=== PATIENT | male | born 1955 | race Caucasian/White ===

== ENCOUNTER 2017-04-01 01:55 | Inpatient (IN) | payer OTHER, MEDICAID ==
--- NOTE | 2017-04-01 02:18 | EDPHY ---
H & P Stated Complaint: M1 delusional and paranoid - Personal History Current Tetanus/Diphtheria Vaccine: Yes Tetanus Vaccine Date: 2008 - Medical/Surgical History Hx Asthma: No Hx Chronic Respiratory Disease: No Hx Diabetes: No Hx Cardiac Disease: No Hx Renal Disease: No Hx Cirrhosis: No Hx Alcoholism: No Hx HIV/AIDS: No Hx Splenectomy or Spleen Trauma: No Other PMH: HX: MENTAL HEALTH "ISSUES", COPD, GERD, SPINAL FUSIONS "LOWER BACK", "KNEES DONE", HYPOTHYROIDISM, PARKINSONS - Social History Smoking Status: Former smoker Time Seen by Provider: 04/01/17 02:09 HPI/ROS: Chief Complaint: Psychosis HPI: 61-year-old male who reports a history of schizoaffective disorder brought in on a mental health hold from [facility] with increasing paranoid delusions and tangential thoughts. Memory is also impaired. Patient has been calling the police multiple times and feeling that neighbors are entering his home while he is sleeping. There has been a recent change in his medications. He denies any recent illness. No fevers or chills. No nausea or vomiting. No chest pain or shortness of breath. ROS: 10 point Review of Systems is negative except as noted in the HPI. PMH: Schizoaffective disorder, neuropathy, GERD Social History: Positive smoking, no alcohol, no recreational drug use Family History: non-contributory Physical Exam: Gen: Awake, Alert, No Distress HEENT: Nose: no rhinorrhea Eyes: PERRLA, EOMI Mouth: Moist mucosa Neck: Supple, no JVD Chest: nontender, lungs clear to auscultation Heart: S1, S2 normal, no murmur Abd: Soft, non-tender, no guarding Back: no CVA tenderness, no midline tenderness Ext: no edema, non-tender Skin: no rash Neuro: CN II-XII intact, Sensation grossly intact, Strength 5/5 in bilateral upper and lower extremities (Shorty Linn) Constitutional: Initial Vital Signs Temperature (C) 36.4 C 04/01/17 02:07 Heart Rate 70 04/01/17 02:07 Respiratory Rate 18 04/01/17 02:07 Blood Pressure 160/105 H 04/01/17 02:07 O2 Sat (%) 94 04/01/17 02:07 O2 Delivery Mode Room Air Allergies/Adverse Reactions: codeine Allergy (Verified 06/19/14 21:49) Penicillins Allergy (Verified 06/19/14 21:49) Home Medications: Medication Instructions Recorded ARIPiprazole [Abilify] 15 mg PO DAILY 06/19/14 Amitriptyline HCl [Elavil 25 mg 25 mg PO HS 04/01/17 (RX)] FLUoxetine [Prozac 20 MG (*)] 40 mg PO DAILY 04/01/17 Levothyroxine [Synthroid 50 mcg 50 mcg PO DAILY06 04/01/17 (*)] OLANZapine [Zyprexa] 20 mg PO BID 04/01/17 Atorvastatin Calcium [Lipitor 10 10 mg PO DAILY 04/02/17 mg (*)] Diazepam [Valium 5 MG (*)] 5 mg PO DAILY PRN 04/02/17 Fluticasone Hfa 220 Mcg [Flovent 1 puffs IH BID 04/02/17 220 MCG Hfa MDI (*)] Furosemide [Lasix 20 MG (*)] 20 mg PO DAILY 04/02/17 Omeprazole Magnesium [Prilosec Otc] 40 mg PO DAILY 04/02/17 Potassium Cl [Klor-Con] 10 meq PO DAILY 04/02/17 Propranolol HCl [Inderal 20mg (*)] 20 mg PO BID 04/02/17 Tamsulosin HCl [Flomax 0.4 MG (*)] 0.4 mg PO HS 04/02/17 lamoTRIgine [Lamictal] 150 mg PO BID 04/02/17 levETIRAcetam [Keppra] 1,000 mg PO DAILY 04/02/17 Medical Decision Making ED Course/Re-evaluation: 61-year-old male with paranoid delusions and psychosis. He is medically cleared. [facility] is looking for placement. [address] out to [address] Nicolas pending placement. No issues during my care overnight. (Shorty Linn) 0700: I assumed care of this patient from Dr. Linn at shift change. Awaiting placement. 1449: Consulted with [facility]. He tells me the patient has been accepted at [facility] [address] Sanford. Transfer paperwork was signed by myself. Patient has been stable. (Eusebia Nicolas) - Data Points Laboratory Results: Laboratory Results 04/01/17 02:04/01/17 02:30 Departure - Departure Disposition: [facility] IP Clinical Impression: Acute psychosis Condition: Fair
[2017-04-01 02:39] LABS: % IMMATURE GRANULYOCYTES 0.5 % (0.0-1.1); ABSOLUTE IMMATURE GRANULOCYTES 0.04 10^3/uL (0.00-0.10); ADD DIFF? NO; ADD MORPH? NO; ADD SCAN? NO; ATYPICAL LYMPHOCYTE FLAG 60 (0-99); FRAGMENT RBC FLAG 0 (0-99); HEMATOCRIT 38.6 % (40.0-51.0); HEMOGLOBIN 13.1 g/dL (13.7-17.5); LEFT SHIFT FLG 0 (0-99); LIPEMIA HEMOLYSIS FLAG 90 (0-99); MEAN CELL HEMOGLOBIN 28.3 pg (27.9-34.1); MEAN CELL HEMOGLOBIN CONCENTR. 33.9 g/dL (32.4-36.7); MEAN CELL VOLUME 83.4 fL (81.5-99.8); MEAN PLATELET VOLUME 9.2 fL (8.7-11.7); PLATELET CLUMPS FLAG 20 (0-99); PLATELET COUNT 324 10^3/uL (150-400); RED BLOOD CELL COUNT 4.63 10^6/uL (4.40-6.38)
[2017-04-01 02:59] LABS: ANION GAP 8 mEq/L (8-16); CALCIUM 9.1 mg/dL (8.5-10.4); CARBON DIOXIDE 25 mEq/l (22-31); CHLORIDE 105 mEq/L (97-110); CREATININE 0.7 mg/dL (0.7-1.3); ETHANOL SERUM < 10 mg/dL (0-10); GLOMERULAR FILTRATION RATE > 60; GLUCOSE 96 mg/dL (70-100); POTASSIUM 3.5 mEq/L (3.5-5.2); SODIUM 138 mEq/L (134-144)
[2017-04-01] MEDS ORDERED: OLANZapine DISINTEGR 5 MG TAB PO PRN (20:08)
[2017-04-01] MEDS ORDERED: MAGNESIUM HYDROXIDE 30 ML UDCUP PO PRN (20:09)
[2017-04-01] MEDS ORDERED: ACETAMINOPHEN 325 MG TAB PO PRN (20:09)
[2017-04-01] MEDS ORDERED: MAG HYDROX/AL HYDROX/SIMETH 30 ML UDCUP PO PRN (20:09)
[2017-04-01] MEDS: OLANZapine 5 MG TAB PO SCH (20:33)
[2017-04-01] MEDS: AMITRIPTYLINE HCL 50 MG TAB PO SCH (20:34)
[2017-04-02] MEDS: LEVOTHYROXINE 50 MCG TAB PO SCH (06:05)
--- NOTE | 2017-04-02 08:32 | GCON ---
[f rep st] CONSULTATION DATE OF CONSULTATION: 04/02/2017 REASON FOR CONSULTATION: I was asked by Dr. Matthews to see the patient in regard to his medical issu es, including COPD, macular degeneration, and hypothyroid. HISTORY OF PRESENT ILLNESS: This is a 61-year-old man with a history of schizoaffective disorder wh o presented to the emergency department 2 days prior complaining of delusional thoughts and tangenti al thoughts. He is brought in by [facility]. He tells me that he has been taking his m edications. In regard to his medical issues, he tells me that these are stable. His review of syst ems reveals some occasional rhinorrhea, as well as shortness of breath with exertion. This is not a ssociated with chest pain. It has actually gotten better recently and is not a new complaint for hi m. He also notes some mild excoriations on his hands. PAST MEDICAL/PAST SURGICAL HISTORY: 1. Macular degeneration with no changes in his vision recently. 2. Neuropathy. He is unclear the etiology of this. 3. COPD with ongoing tobacco use, not oxygen dependent. 4. Degenerative disc disease. 5. GERD. 6. Hypothyroid. 7. Schizoaffective disorder. 8. History of a cervical spinal fracture, not requiring surgery. MEDICATIONS: These include: Amitriptyline, Abilify, Zyprexa, Synthroid, and Prozac. ALLERGIES: Codeine and penicillin. FAMILY HISTORY: His mother is quite sick, currently on hospice. She has heart problems. He does n ot have further information on this. SOCIAL HISTORY: Currently, smoking tobacco. He has decreased his use quite a bit. He does not dri nk alcohol. He lives in [place]. He was a journalism major in college. REVIEW OF SYSTEMS: A 10-point review of systems is conducted and is negative, except per HPI. PHYSICAL EXAMINATION: VITAL SIGNS: Blood pressure 145/99, heart rate is 94, respiration rate 16, s atting at 95% on room air, temperature is 36.4. GENERAL: The patient is a pleasant man who appears mildly anxious. Otherwise, no acute distress. HEENT: Show him to be normocephalic. He has a mil d abrasion on his scalp. There is no surrounding hematoma or edema. CARDIOVASCULAR: Shows distant S1 and S2. He is regular. I do not appreciate any murmurs, rubs, or gallops, but his heart sounds are faint. PULMONARY: Shows lungs to be clear to auscultation bilaterally. He is not in any resp iratory distress. ABDOMEN: Soft, nontender, nondistended. SKIN: Shows mild abrasions without any signs of infection on bilateral hands. : Shows no Mckeon. NEUROLOGIC: Shows him to be alert an d oriented x3. Cranial nerves 2-12 are intact. Ambulation is normal. Motor is intact in upper and lower extremities. Sensation to light touch is also intact in his upper and lower extremity. PSYC HIATRIC: Shows him to be anxious appearing. LABORATORY DATA: CBC shows a hemoglobin of 13.1. Basic metabolic panel is normal. Benzodiazepines are none/negative. Marijuana is none/negative. DATA REVIEWED: 1. I reviewed his chart, including ER note. 2. I reviewed his cervical spine MRI from 2013 where, I believe, he fractured a cervical body. The re is an abnormal STIR signal at C5 and C6. He also has degenerative disc disease seen at multiple levels. 3. I personally viewed and interpreted his EKG performed in 2014. This shows sinus rhythm. This i s a normal EKG. IMPRESSION AND PLAN: A 61-year-old man admitted to [facility] with psychosis, but no acute m edical problems. 1. Chronic obstructive pulmonary disease: Currently, not requiring inhalers or oxygen. He does no t appear to be in any respiratory distress. I would not add any medications at this time. 2. Neuropathy: He tells me he is taking something for it. I believe this may be his Elavil. Woul d continue this. He does not appear to have diabetes, potentially due to alcohol. 3. History of hypothyroid: Would continue Synthroid. 4. Anemia: This is normocytic. It is very mild. I do not have any olds to compare this to. I do not suspect that this is new. This can receive outpatient monitoring and followup. 5. Hypertension: Tells me that he does not normally have high blood pressure. It has come down. Tells me that he is somewhat stressed. I would follow this after instituting psychiatric care. If this is still elevated, please feel free to re-consult Internal Medicine. 6. History of gastroesophageal reflux disease: Continue his omeprazole. I do not see this on his med list, but I will add Protonix. 7. Macular degeneration: This may complicate his care a little bit. His friend was supposed to br ing him some glasses. Would encourage this. Thank you for allowing Hospital [facility] to participate in the care of the patient. We will sign of f for now. If there are any acute medical issues, please feel free to re-consult. /[id number]/MODL
[2017-04-02] MEDS: ARIPiprazole 10 MG TAB PO SCH (08:43)
[2017-04-02] MEDS: FLUoxetine 20 MG CAP PO SCH (08:43)
[2017-04-02] MEDS: OLANZapine 5 MG TAB PO SCH ×2 (08:44→21:49)
[2017-04-02] MEDS: PANTOPRAZOLE SODIUM 40 MG TAB PO SCH (08:44)
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
[2017-04-02] MEDS: AMITRIPTYLINE HCL 50 MG TAB PO SCH (21:49)
[2017-04-03] MEDS: LEVOTHYROXINE 50 MCG TAB PO SCH (06:05)
[2017-04-03] MEDS: ARIPiprazole 10 MG TAB PO SCH (08:35)
[2017-04-03] MEDS: PANTOPRAZOLE SODIUM 40 MG TAB PO SCH (08:35)
[2017-04-03] MEDS: FLUoxetine 20 MG CAP PO SCH (08:35)
[2017-04-03] MEDS: OLANZapine 5 MG TAB PO SCH ×2 (08:35→21:03)
[2017-04-03] MEDS: amLODIPine BESYLATE 5 MG TAB PO SCH (08:36)
[2017-04-03] MEDS ORDERED: LEVETIRACETAM 1000 MG PO SCH (11:00)
[2017-04-03] MEDS: levETIRAcetam 500 MG TAB PO SCH (13:04)
[2017-04-03] MEDS: ATORVASTATIN CALCIUM 10 MG TAB PO SCH (13:04)
[2017-04-03] MEDS: PROPRANOLOL HCL 20 MG TAB PO SCH ×2 (13:04→21:03)
[2017-04-03] MEDS: DIAZEPAM 5 MG TAB PO PRN (13:05)
--- NOTE | 2017-04-03 14:58 | SOAPPROG ---
SOAP Progress Note Assessment/Plan: Assessment: Plan: 04/03/17 14:59 Remains a ways from baseline though functioning well cognitively. Exact characterization of cognitive issues is unclear at this point. Will CCM, monitor. Will need to stay in over the WE for further stabilization, observation and d/c planning. Subjective: Pt seen, discussed with staff. Reports feeling "ready to go." Fixated on need to get glasses. Tells a convoluted tale about losing his glasses. He mentions several times how he has been having "senior moments." He states he is forgetful, frequently losing things or being unaware of his environment. Pt's psychologist has mentioned the possibility of DLB but I don't see the fit clinically. Objective: Vital Signs Temp Pulse Resp BP Pulse Ox 36.4 C 81 14 150/82 H 97 04/03/17 06:35 04/03/17 13:04 04/03/17 06:35 04/03/17 13:04 04/03/17 06:35 MSE: Calm, coop., pleasant and interactive. Affect is slightly blunted, stable , approp. Mood is "good." TP generally linear. TC reveals some ongoing persecutory thoughts about neighbors, IOR's. Denies halluc's. - Time Spent With Patient Time Spent With Patient: 25" ICD10 Worksheet Patient Problems: Problems Problem Status Onset Acute psychosis Acute
[2017-04-03] MEDS: LORazepam 1 MG TAB PO PRN (17:58)
[2017-04-03] MEDS ORDERED: AMITRIPTYLINE HCL 25 MG TAB PO SCH (21:00)
[2017-04-03] MEDS: AMITRIPTYLINE HCL 50 MG TAB PO SCH (21:02)
[2017-04-03] MEDS: TAMSULOSIN HCL 0.4 MG CAP PO SCH (21:04)
[2017-04-04] MEDS: LEVOTHYROXINE 50 MCG TAB PO SCH (06:11)
[2017-04-04] MEDS: levETIRAcetam 500 MG TAB PO SCH (08:37)
[2017-04-04] MEDS: ATORVASTATIN CALCIUM 10 MG TAB PO SCH (08:37)
[2017-04-04] MEDS: PANTOPRAZOLE SODIUM 40 MG TAB PO SCH (08:37)
[2017-04-04] MEDS: PROPRANOLOL HCL 20 MG TAB PO SCH ×2 (08:38→20:56)
[2017-04-04] MEDS: LORazepam 1 MG TAB PO PRN ×2 (08:38→19:00)
[2017-04-04] MEDS: FLUoxetine 20 MG CAP PO SCH (08:38)
[2017-04-04] MEDS: OLANZapine 5 MG TAB PO SCH ×2 (08:38→20:56)
[2017-04-04] MEDS: ARIPiprazole 10 MG TAB PO SCH (08:38)
[2017-04-04] MEDS: amLODIPine BESYLATE 5 MG TAB PO SCH (08:40)
[2017-04-04] MEDS: DIAZEPAM 5 MG TAB PO PRN (14:13)
--- NOTE | 2017-04-04 18:03 | SOAPPROG ---
SOAP Progress Note Assessment/Plan: Assessment: 61yo CM with Schizoaffective d/o decompensated over past 2 months and has been non-compliant with in-home providers. 04/04/17 18:55 pt with poor vision, also swallowing difficulty, almost choked on a peanut butter sandwich this AM. slept well, attending groups. on interview, reports chronically with GI problem due to severe reflux and also no teeth. tries to eat carefully but admits to choking sometimes, twice over recent few months. cooperative, good eye contact, nml speech rate/vol, mood "good". denied any depression or SI/HI or any psychotic sxs. feels psychiatric meds have been very helpful, especially likes that medication helps his appetite and sleep. PLAN: asking again about getting glasses. continue current meds. Speech Therapy consult for swallowing eval today. - stated no restrictions, as pt seems to be compensating for his difficulties by eating slowly and cautiously. Objective: Vital Signs Temp Pulse Resp BP Pulse Ox 36.2 C 86 14 133/81 H 99 04/04/17 10:29 04/04/17 10:29 04/04/17 10:29 04/04/17 10:29 04/04/17 10:29 - Time Spent With Patient Time Spent With Patient: 20min - Pending Discharge Pending Discharge Within 24 Hours: No Pending Discharge Within 48 Hours: No ICD10 Worksheet Patient Problems: Problems Problem Status Onset Acute psychosis Acute
[2017-04-04] MEDS: AMITRIPTYLINE HCL 50 MG TAB PO SCH (20:54)
[2017-04-04] MEDS: TAMSULOSIN HCL 0.4 MG CAP PO SCH (20:55)
[2017-04-05] MEDS: LEVOTHYROXINE 50 MCG TAB PO SCH (06:25)
[2017-04-05] MEDS: FLUoxetine 20 MG CAP PO SCH (09:38)
[2017-04-05] MEDS: ARIPiprazole 10 MG TAB PO SCH (09:38)
[2017-04-05] MEDS: OLANZapine 5 MG TAB PO SCH ×2 (09:38→20:27)
[2017-04-05] MEDS: PROPRANOLOL HCL 20 MG TAB PO SCH ×2 (09:39→20:29)
[2017-04-05] MEDS: PANTOPRAZOLE SODIUM 40 MG TAB PO SCH (09:39)
[2017-04-05] MEDS: levETIRAcetam 500 MG TAB PO SCH (09:40)
[2017-04-05] MEDS: amLODIPine BESYLATE 5 MG TAB PO SCH (09:40)
[2017-04-05] MEDS: ATORVASTATIN CALCIUM 10 MG TAB PO SCH (09:41)
[2017-04-05] MEDS: DIAZEPAM 5 MG TAB PO PRN (13:44)
[2017-04-05] MEDS: LORazepam 1 MG TAB PO PRN ×2 (16:17→20:27)
[2017-04-05] MEDS: AMITRIPTYLINE HCL 50 MG TAB PO SCH (20:27)
[2017-04-05] MEDS: TAMSULOSIN HCL 0.4 MG CAP PO SCH (20:29)
--- NOTE | 2017-04-05 21:02 | SOAPPROG ---
SOAP Progress Note Assessment/Plan: Assessment: 61yo CM with Schizoaffective d/o decompensated over past 2 months and has been non-compliant with in-home providers. 04/04/17 18:55 pt with poor vision, also swallowing difficulty, almost choked on a peanut butter sandwich this AM. slept well, attending groups. on interview, reports chronically with GI problem due to severe reflux and also no teeth. tries to eat carefully but admits to choking sometimes, twice over recent few months. cooperative, good eye contact, nml speech rate/vol, mood "good". denied any depression or SI/HI or any psychotic sxs. feels psychiatric meds have been very helpful, especially likes that medication helps his appetite and sleep. PLAN: asking again about getting glasses. continue current meds. Speech Therapy consult for swallowing eval today. - stated no restrictions, as pt seems to be compensating for his difficulties by eating slowly and cautiously. 04/05/17 21:06 slept 9hrs. thinks people are stealing from him. Changed to mechanical soft diet yesterday, despite nml swallowing eval, since cognition may affect his concentrating on eating carefully. On interview, pt very happy about mechanical soft diet, stating he can eat more freely and enjoy food. Complains of ringing in ears x 2 days. unsure of what meds or med changes have occurred but feels they are otherwise working well. MSE: cooperative, engaging, mood "stable", affect full, thoughts seem linear and organized, denied si/hi or any overt psychotic sxs, although staff report some possible paranoia. PLAN: -Will consult ST for cognitive assessment. -Consider taper down Elavil (slowly b/c on this for years he reports) to decr anticholinergic affects which could further adversely impact cognition and cause dry mouth which would affect swallowing. -May be able to decr Abilify since responding to and liking Zyprexa, to simplify med regimen -Phone call to pharmacy to review meds/med-interactions as pt c/o tinnitus. Objective: Vital Signs Temp Pulse Resp BP Pulse Ox 36.2 C 66 12 118/74 99 04/05/17 14:08 04/05/17 20:29 04/05/17 14:08 04/05/17 14:08 04/05/17 14:08 - Time Spent With Patient Time Spent With Patient: 20min - Pending Discharge Pending Discharge Within 24 Hours: No Pending Discharge Within 48 Hours: No ICD10 Worksheet Patient Problems: Problems Problem Status Onset Acute psychosis Acute
[2017-04-06] MEDS: LEVOTHYROXINE 50 MCG TAB PO SCH (05:16)
[2017-04-06] MEDS: FLUoxetine 20 MG CAP PO SCH (09:07)
[2017-04-06] MEDS: ARIPiprazole 10 MG TAB PO SCH (09:08)
[2017-04-06] MEDS: levETIRAcetam 500 MG TAB PO SCH (09:08)
[2017-04-06] MEDS: ATORVASTATIN CALCIUM 10 MG TAB PO SCH (09:09)
[2017-04-06] MEDS: amLODIPine BESYLATE 5 MG TAB PO SCH (09:10)
[2017-04-06] MEDS: OLANZapine 5 MG TAB PO SCH ×2 (09:10→20:22)
[2017-04-06] MEDS: PANTOPRAZOLE SODIUM 40 MG TAB PO SCH (09:12)
[2017-04-06] MEDS: PROPRANOLOL HCL 20 MG TAB PO SCH ×2 (09:12→20:23)
[2017-04-06] MEDS: DIAZEPAM 5 MG TAB PO PRN (09:22)
[2017-04-06] MEDS: LORazepam 1 MG TAB PO PRN (13:40)
--- NOTE | 2017-04-06 17:47 | SOAPPROG ---
ALESSANDRA Progress Note Assessment/Plan: Assessment: Plan: 04/03/17 14:59 Remains a ways from baseline though functioning well cognitively. Exact characterization of cognitive issues is unclear at this point. Will CCM, monitor. Will need to stay in over the WE for further stabilization, observation and d/c planning. 04/06/17 17:47 Rather down today. Confused about d/c plan. This may be indicative of cognitive issues, i.e. unable to grasp multi-step plan. Will CCM, monitor. Subjective: Pt seen, discussed with staff, chart reviewed. Appears frustrated and rather down today. He states he "can't do anything right." Refers to spilling a cup of coffee earlier and is very upset about this. He states he is confused about the d/c plan. I reviewed with him the need to have a safe d/c plan including in -home services and that we could likely d/c him when that is in place. Objective: Vital Signs Temp Pulse Resp BP Pulse Ox 36.3 C 83 15 149/86 H 94 04/06/17 06:00 04/06/17 06:00 04/06/17 06:00 04/06/17 06:00 04/06/17 06:00 MSE: Calm, coop. Affect is dysphoric, constricted, even tearful at times. Mood is "bad." TP generally linear. Able to give the full name and title of his Medicaid director of casework department. TC reveals continued worry about his neighbors stealing from him. Denies A/V/T halluc's. - Time Spent With Patient Time Spent With Patient: 25" ICD10 Worksheet Patient Problems: Problems Problem Status Onset Acute psychosis Acute
[2017-04-06] MEDS: AMITRIPTYLINE HCL 10 MG TAB PO SCH (20:22)
[2017-04-06] MEDS: TAMSULOSIN HCL 0.4 MG CAP PO SCH (20:22)
[2017-04-06] MEDS: AMITRIPTYLINE HCL 50 MG TAB PO SCH (20:23)
[2017-04-07] MEDS: LEVOTHYROXINE 50 MCG TAB PO SCH (06:37)
[2017-04-07] MEDS: PANTOPRAZOLE SODIUM 40 MG TAB PO SCH (08:58)
[2017-04-07] MEDS: ARIPiprazole 10 MG TAB PO SCH (08:58)
[2017-04-07] MEDS: FLUoxetine 20 MG CAP PO SCH (08:58)
[2017-04-07] MEDS: levETIRAcetam 500 MG TAB PO SCH (08:59)
[2017-04-07] MEDS: ATORVASTATIN CALCIUM 10 MG TAB PO SCH (08:59)
[2017-04-07] MEDS: OLANZapine 5 MG TAB PO SCH ×2 (08:59→21:22)
[2017-04-07] MEDS: PROPRANOLOL HCL 20 MG TAB PO SCH ×2 (09:01→21:22)
[2017-04-07] MEDS: amLODIPine BESYLATE 5 MG TAB PO SCH (09:01)
[2017-04-07] MEDS: LORazepam 1 MG TAB PO PRN ×2 (09:07→18:12)
--- NOTE | 2017-04-07 17:23 | SOAPPROG ---
SOKESHA Progress Note Assessment/Plan: Assessment: Plan: 04/03/17 14:59 Remains a ways from baseline though functioning well cognitively. Exact characterization of cognitive issues is unclear at this point. Will CCM, monitor. Will need to stay in over the WE for further stabilization, observation and d/c planning. 04/06/17 17:47 Rather down today. Confused about d/c plan. This may be indicative of cognitive issues, i.e. unable to grasp multi-step plan. Will CCM, monitor. 04/07/17 17:21 Improved today. CCM. Continue d/c planning. Subjective: Pt seen, discussed with staff. Reports feeling "much better" today. Affect is brighter and he is less perseverative. Continues to worry about spilling the coffee yesterday. Agreeable to d/c plan to increase in-home services. States, "I just need to feel safer." Objective: Vital Signs Temp Pulse Resp BP Pulse Ox 36.3 C 70 14 130/76 H 96 04/07/17 06:00 04/07/17 09:01 04/07/17 06:00 04/07/17 09:01 04/07/17 06:00 MSE: Calm, coop. Affect is blunted, but brighter. Mood is "a lot better today." TP generally linear. TC reveals continues paranoia about neighbor. - Time Spent With Patient Time Spent With Patient: 25" ICD10 Worksheet Patient Problems: Problems Problem Status Onset Acute psychosis Acute
[2017-04-07] MEDS: AMITRIPTYLINE HCL 10 MG TAB PO SCH (21:22)
[2017-04-07] MEDS: TAMSULOSIN HCL 0.4 MG CAP PO SCH (21:22)
[2017-04-07] MEDS: AMITRIPTYLINE HCL 50 MG TAB PO SCH (21:22)
[2017-04-08] MEDS: LEVOTHYROXINE 50 MCG TAB PO SCH (06:04)
[2017-04-08] MEDS: LORazepam 1 MG TAB PO PRN ×2 (06:32→16:35)
[2017-04-08 07:04] VITALS: TEMP 97.5
[2017-04-08] MEDS: levETIRAcetam 500 MG TAB PO SCH (08:45)
[2017-04-08] MEDS: PROPRANOLOL HCL 20 MG TAB PO SCH ×2 (08:45→21:44)
[2017-04-08] MEDS: OLANZapine 5 MG TAB PO SCH ×2 (08:46→21:44)
[2017-04-08] MEDS: ARIPiprazole 10 MG TAB PO SCH (08:46)
[2017-04-08] MEDS: amLODIPine BESYLATE 5 MG TAB PO SCH (08:47)
[2017-04-08] MEDS: ATORVASTATIN CALCIUM 10 MG TAB PO SCH (08:47)
[2017-04-08] MEDS: FLUoxetine 20 MG CAP PO SCH (08:47)
[2017-04-08] MEDS: PANTOPRAZOLE SODIUM 40 MG TAB PO SCH (08:47)
[2017-04-08] MEDS: DIAZEPAM 5 MG TAB PO PRN (12:27)
--- NOTE | 2017-04-08 15:57 | SOAPPROG ---
SOAP Progress Note Assessment/Plan: Assessment: Plan: 04/03/17 14:59 Remains a ways from baseline though functioning well cognitively. Exact characterization of cognitive issues is unclear at this point. Will CCM, monitor. Will need to stay in over the WE for further stabilization, observation and d/c planning. 04/06/17 17:47 Rather down today. Confused about d/c plan. This may be indicative of cognitive issues, i.e. unable to grasp multi-step plan. Will CCM, monitor. 04/07/17 17:21 Improved today. CCM. Continue d/c planning. 04/08/17 15:59 Likely nearing baseline. Unable to return to independent living without increase in in-home services. Will CCM, continue d/c planning. Subjective: Pt seen, discussed with staff. Reports feeling "pretty frustrated" about being in the hospital. He states he "doesn't do well around sick people." He remains paranoid about his neighbors. He struggles to remember details of his d /c plan. States we have lied to him about his d/c. I reemphasized to him that we will d/c him when a safe plan is in place. Objective: Vital Signs Temp Pulse Resp BP Pulse Ox 36.4 C 81 15 120/79 96 04/08/17 06:00 04/08/17 08:45 04/08/17 06:00 04/08/17 08:47 04/08/17 06:00 MSE: Anxious, moderately agitated at time. Affect is constricted, stable. Mood is "not too good." TP generally linear. TC reveals paranoia. Cognition is unchanged. Unable to retain details of multi-step plan. - Time Spent With Patient Time Spent With Patient: 15" ICD10 Worksheet Patient Problems: Problems Problem Status Onset Acute psychosis Acute
[2017-04-08] MEDS: TAMSULOSIN HCL 0.4 MG CAP PO SCH (21:44)
[2017-04-08] MEDS: AMITRIPTYLINE HCL 10 MG TAB PO SCH (21:45)
[2017-04-08] MEDS: AMITRIPTYLINE HCL 50 MG TAB PO SCH (21:45)
[2017-04-09] MEDS: LEVOTHYROXINE 50 MCG TAB PO SCH (05:58)
[2017-04-09 06:24] VITALS: RESP 14
[2017-04-09] MEDS: LORazepam 1 MG TAB PO PRN (07:36)
[2017-04-09] MEDS: ARIPiprazole 10 MG TAB PO SCH (07:36)
[2017-04-09] MEDS: FLUoxetine 20 MG CAP PO SCH (07:36)
[2017-04-09] MEDS: OLANZapine 5 MG TAB PO SCH ×2 (07:37→20:39)
[2017-04-09] MEDS: PROPRANOLOL HCL 20 MG TAB PO SCH ×2 (07:37→20:39)
[2017-04-09] MEDS: levETIRAcetam 500 MG TAB PO SCH (07:38)
[2017-04-09] MEDS: ATORVASTATIN CALCIUM 10 MG TAB PO SCH (07:38)
[2017-04-09] MEDS: PANTOPRAZOLE SODIUM 40 MG TAB PO SCH (07:39)
[2017-04-09] MEDS: amLODIPine BESYLATE 5 MG TAB PO SCH (07:39)
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
[2017-04-09] MEDS: DIAZEPAM 5 MG TAB PO PRN (15:51)
[2017-04-09] MEDS: AMITRIPTYLINE HCL 10 MG TAB PO SCH (20:39)
[2017-04-09] MEDS: AMITRIPTYLINE HCL 50 MG TAB PO SCH (20:39)
[2017-04-09] MEDS: TAMSULOSIN HCL 0.4 MG CAP PO SCH (20:39)
[2017-04-10] MEDS: LEVOTHYROXINE 50 MCG TAB PO SCH (05:34)
[2017-04-10] MEDS: LORazepam 1 MG TAB PO PRN ×2 (06:10→17:33)
[2017-04-10 06:28] VITALS: O2SAT 99
[2017-04-10] MEDS: FLUoxetine 20 MG CAP PO SCH (10:56)
[2017-04-10] MEDS: PROPRANOLOL HCL 20 MG TAB PO SCH (10:56)
[2017-04-10] MEDS: levETIRAcetam 500 MG TAB PO SCH (10:59)
[2017-04-10] MEDS: amLODIPine BESYLATE 5 MG TAB PO SCH (10:59)
[2017-04-10] MEDS: ATORVASTATIN CALCIUM 10 MG TAB PO SCH (10:59)
[2017-04-10] MEDS: PANTOPRAZOLE SODIUM 40 MG TAB PO SCH (10:59)
[2017-04-10 11:00] VITALS: BP 126/78; PULSE 80
[2017-04-10] MEDS: OLANZapine 5 MG TAB PO SCH (11:00)
[2017-04-10] MEDS: ARIPiprazole 10 MG TAB PO SCH (11:00)
[2017-04-10] MEDS: DIAZEPAM 5 MG TAB PO PRN (15:03)
== END 2017-04-10 19:05 | disposition home or self-care (01) | DRG 885 ==
LOC: EDUNIT# → BBEH 18:20
PROVIDERS: ADMIT Psychiatry & Neurology Psychiatry; ATTEND Psychiatry & Neurology Psychiatry
DX: F25.0 Schizoaffective disorder, bipolar type (principal); H35.30 Unspecified macular degeneration; F12.90 Cannabis use, unspecified, uncomplicated; F17.210 Nicotine dependence, cigarettes, uncomplicated; G20 Parkinson's disease; J44.9 Chronic obstructive pulmonary disease, unspecified; K21.9 Gastro-esophageal reflux disease without esophagitis; Z98.1 Arthrodesis status; E03.9 Hypothyroidism, unspecified
CPT/HCPCS: 80305; 92507-GN; 92523-GN; 92526-GN; 92610-GN; G0480; G8996-GN-CI; G8997-GN-CI; G8998-GN-CI; G9168-GN-CJ; G9169-GN-CI; G9170-GN-CI

== ENCOUNTER 2018-06-27 20:34 | Emergency (ER) | payer OTHER, MEDICAID ==
--- NOTE | 2018-06-27 20:48 | EDPHY ---
H & P Stated Complaint: weakness Time Seen by Provider: 06/27/18 20:36 HPI/ROS: CHIEF COMPLAINT: Generalized fatigue HISTORY OF PRESENT ILLNESS: The patient is a 63-year-old man with history of schizophrenia, hypothyroidism, seizure disorder, GERD and COPD who comes to the emergency department complaining of generalized fatigue this morning when he woke up. He states that he has centrally laid around all day and then this evening called an ambulance by the time they got there he was feeling better. No fevers. No nausea vomiting. No abdominal pain. No chest pain. No shortness of breath. He does state that he has had mild shortness of breath when he sleeps at night when he lays flat. He told paramedics that he thinks that it is positioning and sleep apnea. He denies history of CHF. No lower extremity swelling. He has not had any new medication changes. He did start phenobarbital couple of weeks ago but did not take it more than about a week because he did not like the way it made him feel. Severity: Moderate Modifying factors: None REVIEW OF SYSTEMS: Constitutional: denies: chills, fever, recent illness, recent injury EENTM: denies: blurred vision, double vision, nose congestion Respiratory: denies: cough, shortness of breath Cardiac: denies: chest pain, irregular heart rate, lightheadedness, palpitations Gastrointestinal/Abdominal: denies: abdominal pain, diarrhea, nausea, vomiting, blood streaked stools Genitourinary: denies: dysuria, frequency, hematuria, pain Musculoskeletal: denies: joint pain, muscle pain Skin: denies: lesions, rash, jaundice, bruising Neurological: denies: headache, numbness, paresthesia, tingling, dizziness, weakness Hematologic/Lymphatic: denies: blood clots, easy bleeding, easy bruising Immunologic/allergic: denies: HIV/AIDS, transplant 10 systems reviewed and negative except as noted EXAM: GENERAL: Well-appearing, well-nourished and in no acute distress. HEAD: Atraumatic, normocephalic. EYES: Pupils equal round and reactive to light, extraocular movements intact, sclera anicteric, conjunctiva are normal. ENT: TMs normal, nares patent, oropharynx clear without exudates. Moist mucous membranes. NECK: Normal range of motion, supple without lymphadenopathy or JVD. LUNGS: Breath sounds clear to auscultation bilaterally and equal. No wheezes rales or rhonchi. HEART: Regular rate and rhythm without murmurs, rubs or gallops. ABDOMEN: Soft, nontender, normoactive bowel sounds. No guarding, no rebound. No masses appreciated. BACK: No CVA tenderness, no spinal tenderness, step-offs or deformities EXTREMITIES: Normal range of motion, no pitting or edema. No clubbing or cyanosis. NEUROLOGICAL: Cranial nerves II through XII grossly intact. Normal speech, normal gait. 5/5 strength, normal movement in all extremities, normal sensation , normal reflexes PSYCH: Normal mood, normal affect. Able to answer questions rapidly. Cognitive normally. SKIN: Warm, dry, normal turgor, no visible rashes or lesions. Source: Patient Exam Limitations: No limitations - Personal History Current Tetanus Diphtheria and Acellular Pertussis (TDAP): Yes Tetanus Vaccine Date: 2008 - Medical/Surgical History Hx Asthma: No Hx Chronic Respiratory Disease: Yes Hx Diabetes: No Hx Cardiac Disease: No Hx Renal Disease: No Hx Cirrhosis: No Hx Alcoholism: No Hx HIV/AIDS: No Hx Splenectomy or Spleen Trauma: No Other PMH: HX: MENTAL HEALTH "ISSUES", COPD, GERD, SPINAL FUSIONS "LOWER BACK", "KNEES DONE", HYPOTHYROIDISM, PARKINSONS - Family History Significant Family History: No pertinent family hx - Social History Smoking Status: Former smoker Alcohol Use: Sober Drug Use: None Constitutional: Initial Vital Signs Temperature (C) 36.7 C 06/27/18 20:42 Heart Rate 80 06/27/18 20:42 Respiratory Rate 16 06/27/18 20:42 Blood Pressure 174/103 H 06/27/18 20:42 O2 Sat (%) 93 06/27/18 20:42 O2 Delivery Mode Room Air Allergies/Adverse Reactions: codeine Allergy (Verified 06/27/18 20:38) Penicillins Allergy (Verified 06/27/18 20:38) Home Medications: Medication Instructions Recorded Abilify 06/27/18 Aripiprazole 06/27/18 Atorvastatin Calcium 06/27/18 Diazepam 06/27/18 Elavil 06/27/18 FLUoxetine 06/27/18 Fluticasone Propionate 06/27/18 Keppra 06/27/18 Levothyroxine 06/27/18 Olanzapine 06/27/18 Omeprazole 06/27/18 Propranolol HCl 06/27/18 Synthroid 06/27/18 Tamsulosin HCl 06/27/18 Medical Decision Making - Diagnostics EKG Interpretation: An EKG obtained and was read and documented in trace view. Please see trace view for full reading and report. Sinus rhythm, no acute ischemic changes Imaging: Discussed imaging studies w/ scallop binder Radiologist ED Course/Re-evaluation: The patient has a lytic lesion on x-ray and complains of shortness of breath when lying flat. He has generalized weakness. No obvious source at this time. I spoke with Dr. Duque and we agreed to admit to the medical service and will obtain a CT angio. 11:00 p.m. We discussed the CT results. He does not have lesions he has old fractures. No other abnormality seen in his chest. The patient is feeling better after hydration and would prefer to go home than be admitted. We gave him a road test and he did well with this. I laid him flat any remained at 98% on room air. Will discharge at this time. He is asking for a taxi home. Differential Diagnosis: Partial list of the Differential diagnosis considered include but were not limited to; pneumonia, bronchitis, a electrolyte abnormalities the and although unlikely based on the history and physical exam, I also considered sepsis, acute coronary disease. - Data Points Laboratory Results: Laboratory Results 06/27/18 20:49 06/27/18 20:49 Point of Care Test Results: Chemistry 06/27/18 21:02 POC Troponin I 0.02 ng/mL ng/mL (0.00-0.08) Departure - Departure Disposition: [facility] Inpatient Acute Clinical Impression: Generalized weakness Condition: Fair Instructions: Weakness (ED) Referrals: Patient,NotPresent [Unknown] - As per Instructions Leighton Yanez MD [Medical Doctor] - 2-3 days, if not improved
[2018-06-27 20:57] LABS: PLATELET COUNT 324 10^3/uL (150-400)
[2018-06-27 21:06] LABS: INR 0.97 (0.83-1.16); PROTIME(PATIENT) 13.1 SEC (12.0-15.0)
--- NOTE | 2018-06-27 21:32 | CPEKG ---
Test Reason : OPEN Blood Pressure : / mmHG Vent. Rate : 064 BPM Atrial Rate : 063 BPM P-R Int : 162 ms QRS Dur : 099 ms QT Int : 400 ms P-R-T Axes : 061 056 057 degrees QTc Int : 413 ms Sinus rhythm Confirmed by Abner Hurtado ([id number]) on 06/27/2018 9:31:46 PM Referred By: Confirmed By:Abner Hurtado
[2018-06-27] MEDS ORDERED: ONDANSETRON 4 MG/2 ML VIAL IVP PRN (22:28)
[2018-06-27] MEDS ORDERED: ONDANSETRON DISINTEGRATING 4 MG TAB PO PRN (22:28)
[2018-06-27] MEDS ORDERED: ACETAMINOPHEN 325 MG TAB PO PRN (22:28)
[2018-06-27] MEDS ORDERED: IOPAMIDOL (ISOVUE 370) 100 ML BTL IV ONE (22:29)
[2018-06-27 23:25] VITALS: BP 153/89
[2018-06-28] MEDS ORDERED: ENOXAPARIN 40 MG/0.4 ML SYR SC SCH (09:00)
== END 2018-06-27 23:58 | disposition still patient (30) ==
LOC: EDUNIT# → UNDOADMOB 22:28
DX: R53.83 Other fatigue (principal); J44.9 Chronic obstructive pulmonary disease, unspecified; G20 Parkinson's disease; Z87.891 Personal history of nicotine dependence; Z87.81 Personal history of (healed) traumatic fracture
CPT/HCPCS: 71046; 71275; 93005; 99285; Q9967; 84484-PO; G0480; J1650